=== PATIENT | male | born 1975 | race African-American/Black ===

== ENCOUNTER 2024-05-03 17:03 | Emergency (ER) | payer OTHER ==
[~2024-05-03] VITALS: Ht 177.8 cm; Wt 77.1 kg
[2024-05-03 17:15] VITALS: BP 112/72; PULSE 85; RESP 18; TEMP 98.4; O2SAT 99
[2024-05-03] MEDS: KETOROLAC 30 MG/ML VIAL IM ONE (18:40)
[2024-05-03] MEDS: ACETAMINOPHEN EXTRA STRENGTH 500 MG TAB PO ONE (18:45)
[2024-05-03] MEDS: diazePAM 5 MG TAB PO ONE (18:45)
[2024-05-03 19:31] VITALS: BP 137/79; PULSE 68; RESP 18; TEMP 97.7; O2SAT 98
== END 2024-05-03 20:45 | disposition home or self-care (01) ==
LOC: MED 17:03
DX: S34.102A Unspecified injury to L2 level of lumbar spinal cord, initial encounter (principal); S39.012A Strain of muscle, fascia and tendon of lower back, initial encounter; X58.XXXA Exposure to other specified factors, initial encounter; Y92.89 Other specified places as the place of occurrence of the external cause; Y93.89 Activity, other specified; Y99.8 Other external cause status
CPT/HCPCS: 72100; 72131; 96372; 99285; J1885

== ENCOUNTER 2024-05-06 17:38 | Emergency (ER) | payer OTHER ==
[~2024-05-06] VITALS: Ht 177.8 cm; Wt 74.8 kg
[2024-05-06 17:57] VITALS: BP 109/70; PULSE 86; RESP 18; TEMP 98.6; O2SAT 99
[2024-05-06] MEDS: ACETAMINOPHEN 325 MG TAB PO ONE (19:03)
[2024-05-06] MEDS: KETOROLAC 30 MG/ML VIAL IM ONE (19:03)
[2024-05-06] MEDS ORDERED: ACET-10509 PO (19:32)
== END 2024-05-06 19:43 | disposition home or self-care (01) ==
LOC: MED 17:38
DX: R51.9 Headache, unspecified (principal); F17.210 Nicotine dependence, cigarettes, uncomplicated; F12.90 Cannabis use, unspecified, uncomplicated; Z79.899 Other long term (current) drug therapy
CPT/HCPCS: 96372; 99283; J1885